=== PATIENT | female | born 1935 | race Caucasian/White ===

== ENCOUNTER 2020-11-12 10:30 | Outpatient (RCR) | payer MEDICARE | END 2020-11-18 16:24 | disposition still patient (30) | LOC: ONC 10:30 | PROVIDERS: ATTEND Internal Medicine Hematology & Oncology | DX: C67.2 Malignant neoplasm of lateral wall of bladder (principal); K59.00 Constipation, unspecified | CPT/HCPCS: 99214 ==

== ENCOUNTER → 2020-11-17 | Outpatient (CLI) | payer MEDICARE ==
--- NOTE | 2020-11-17 16:03 | Diagnostic Imaging Report ---
INDICATION: Malignant neoplasm of the bladder. TECHNIQUE: The serum blood glucose level at the time of injection was 111 mg/dL. The patient was administered 13.2 mCi of F-18 FDG intravenously in the right forearm and PET imaging was performed from the top of the skull to the mid thighs. A noncontrast CT was also performed for attenuation correction and anatomic correlation. COMPARISON: No prior imaging is available for comparison. FINDINGS: There is symmetric activity throughout the brain. The soft tissues of the neck are unremarkable. No mediastinal or hilar hypermetabolism is identified. No pulmonary parenchymal hypermetabolism is identified. There is physiologic activity within the GI and tracts. There is some dilatation of the left renal collecting system and left ureter. The CT images demonstrate some bladder wall thickening on the left side without evidence of discrete mass. No hypermetabolic lymphadenopathy is identified to suggest metastatic disease. IMPRESSION: Essentially unremarkable PET/CT study. No suspicious regions of hypermetabolism are identified. Dictated by: Dictated on workstation # [id number]
== END ==
LOC: RAD 12:45
PROVIDERS: ATTEND Internal Medicine Hematology & Oncology
DX: C67.9 Malignant neoplasm of bladder, unspecified (principal)
CPT/HCPCS: 78815; A9552

== ENCOUNTER 2020-11-20 12:48 | Outpatient (RCR) | payer MEDICARE ==
[~2020-11-20] VITALS: Ht 162.6 cm; Wt 65.8 kg
[2020-11-20 13:56] LABS: BILIRUBIN,URINE NEGATIVE (NEGATIVE); CLARITY,URINE CLEAR; COLOR,URINE YELLOW; GLUCOSE, URINE (UA) NEGATIVE (NEGATIVE); KETONES,URINE NEGATIVE (NEGATIVE); LEUKOCYTE ESTERASE ,URINE 2+ (NEGATIVE); NITRITE,URINE NEGATIVE (NEGATIVE); PROTEIN,URINE 2+ (NEGATIVE)
[2020-11-20 14:16] LABS: BACTERIA,URINE MODERATE /HPF; RBC,URINE >100 /HPF; WBC,URINE >100 /HPF
[2020-11-23] MEDS ORDERED: FAMOTIDINE 20MG/2ML IV (CANCER CTR) IV SCH (15:45)
[2020-11-23] MEDS ORDERED: NS IV 1000 ML (CANCER CTR) IV SCH (15:45)
[2020-11-23] MEDS ORDERED: FOSAPREPITANT (CANCER CENTER) 150 MG in NS (IVPB) CANCER CENTER ONLY 150 ML IV SCH (15:45)
[2020-11-23] MEDS ORDERED: diphenhydrAMINE 25 MG TAB (BENADRYL) CANCER CENTER PO SCH (15:45)
[2020-11-23] MEDS ORDERED: NS IV SCH (16:00)
[2020-11-23] MEDS ORDERED: GEMCITABINE HCL IV SCH (16:00)
== END 2021-01-15 11:13 | disposition home or self-care (01) ==
LOC: ONC 12:48
PROVIDERS: ATTEND Internal Medicine Hematology & Oncology
DX: C67.2 Malignant neoplasm of lateral wall of bladder (principal); K59.00 Constipation, unspecified; N39.0 Urinary tract infection, site not specified; I48.91 Unspecified atrial fibrillation; I50.9 Heart failure, unspecified; Z79.01 Long term (current) use of anticoagulants
CPT/HCPCS: 81000; 87088; G0463; 99213